=== PATIENT | female | born 1940 | race Caucasian/White ===

== ENCOUNTER 2017-08-21 13:03 | Inpatient (IN) | payer MEDICARE, OTHER ==
[~2017-08-21] VITALS: Ht 162.6 cm; Wt 68.9 kg
[2017-08-21] MEDS ORDERED: CLON0.1T PO (13:40)
[2017-08-21] MEDS ORDERED: GLIP10TA13 PO (13:40)
[2017-08-21] MEDS ORDERED: METF500T4 PO (13:40)
[2017-08-21] MEDS ORDERED: BENA40TA2 PO (13:40)
[2017-08-21] MEDS ORDERED: HYDR25TA6 PO (13:40)
[2017-08-21] MEDS ORDERED: ATEN25TA PO (13:40)
[2017-08-21] MEDS ORDERED: CLOP75TA PO (13:40)
[2017-08-21] MEDS ORDERED: VANCOMYCIN PER PHARMACY MC ONE (14:00)
[2017-08-21] MEDS ORDERED: VANCOMYCIN 2,000 MG in SODIUM CHLORIDE 0.9% 500 ML IV ONE (14:00)
[2017-08-21] MEDS ORDERED: PHARMACOKINETIC CONSULTATION MC ONE (14:00)
[2017-08-21] MEDS ORDERED: SODIUM CHLORIDE FLUSH 10ML SYR IVF ONE (14:00)
[2017-08-21] MEDS ORDERED: AMPICILLIN/SULBACTAM 3 GM in SODIUM CHLORIDE 0.9% 100 ML IVPB ONE (14:00)
[2017-08-21 14:16] LABS: HEMATOCRIT 32.7 % (34.6-47.8); HEMOGLOBIN 11.1 g/dL (11.7-16.4)
[2017-08-21 14:28] LABS: BLOOD UREA NITROGEN 39 mg/dL (7-18)
[2017-08-21] MEDS ORDERED: MORPHINE SULFATE 4 MG/ML, 1ML IVPush PRN (15:00)
[2017-08-21] MEDS ORDERED: DEXTROSE 50%, 50ML SYRINGE ONE (15:28)
[2017-08-21] MEDS ORDERED: DEXTROSE 50%, 50ML SYRINGE IVPush ONE (16:00)
[2017-08-21] MEDS ORDERED: D5%-0.45% NACL 1,000 ML IV SCH (16:00)
[2017-08-21 17:21] VITALS: BP 160/55
[2017-08-21] MEDS ORDERED: GLUCAGON 1 MG IM PRN (17:30)
[2017-08-21] MEDS ORDERED: DEXTROSE 4 GM TAB.CHEW PO PRN (17:30)
[2017-08-21] MEDS ORDERED: PHARMACY MAY ADJ FOR RENAL FX MC PRN (17:30)
[2017-08-21] MEDS ORDERED: VANCOMYCIN PER PHARMACY MC PRN (17:30)
[2017-08-21] MEDS ORDERED: ONDANSETRON 2MG/ML, 2ML IVPush PRN (17:30)
[2017-08-21] MEDS ORDERED: DEXTROSE 50%, 50ML SYRINGE IVPush PRN (17:30)
[2017-08-21] MEDS ORDERED: PROMETHAZINE 25 MG/ML, 1ML IM PRN (17:30)
[2017-08-21] MEDS ORDERED: PHARMACOKINETIC MONITORING MC PRN (18:00)
[2017-08-21] MEDS: D5%-0.45NACL+KCL 20MEQ 1,000 ML IV SCH (18:26)
[2017-08-21] MEDS ORDERED: VANCOMYCIN 2,000 MG in SODIUM CHLORIDE 0.9% 500 ML IV SCH (20:00)
[2017-08-21] MEDS: AMPICILLIN/SULBACTAM 3 GM in SODIUM CHLORIDE 0.9% 100 ML IV SCH (20:04)
[2017-08-21] MEDS: SODIUM CHLORIDE FLUSH 10ML SYR IVF SCH (20:05)
[2017-08-21] MEDS: ENOXAPARIN 40 MG/0.4 ML SQ SCH (20:05)
[2017-08-21] MEDS: BENAZEPRIL 20 MG TABLET PO SCH (20:06)
[2017-08-21] MEDS: ATENOLOL 25 MG TABLET PO SCH (20:06)
[2017-08-21 20:12] VITALS: BP 193/70
[2017-08-21] MEDS: INSULIN ASPART 100 UNITS/ML, PEN SQ-INSULIN SCH (22:41)
[2017-08-22] MEDS: AMPICILLIN/SULBACTAM 3 GM in SODIUM CHLORIDE 0.9% 100 ML IV SCH ×5 (02:00→23:20)
[2017-08-22 02:06] VITALS: BP 129/70
[2017-08-22 06:11] LABS: HEMATOCRIT 28.5 % (34.6-47.8); HEMOGLOBIN 9.5 g/dL (11.7-16.4); WHITE BLOOD COUNT 11.4 x10^3/uL (3.4-10)
[2017-08-22 06:32] VITALS: BP 181/72
[2017-08-22 06:36] LABS: ASPARTATE AMINO TRANSFERASE 9 U/L (15-37); BLOOD UREA NITROGEN 34 mg/dL (7-18)
[2017-08-22] MEDS: INSULIN ASPART 100 UNITS/ML, PEN SQ-INSULIN SCH ×4 (07:00→20:17)
[2017-08-22] MEDS ORDERED: CLOPIDOGREL 75 MG TABLET PO SCH (09:00)
[2017-08-22] MEDS: BENAZEPRIL 20 MG TABLET PO SCH ×2 (09:49→20:17)
[2017-08-22] MEDS: HYDROCHLOROTHIAZIDE 25 MG TABLET PO SCH (09:49)
[2017-08-22] MEDS: MORPHINE SULFATE 4 MG/ML, 1ML IVPush PRN ×3 (09:50→20:15)
[2017-08-22] MEDS: ATENOLOL 25 MG TABLET PO SCH ×2 (09:50→20:17)
[2017-08-22] MEDS: SODIUM CHLORIDE FLUSH 10ML SYR IVF SCH ×2 (09:56→20:14)
[2017-08-22 14:05] VITALS: BP 194/66
[2017-08-22 15:43] VITALS: BP 164/60
[2017-08-22] MEDS ORDERED: POTASSIUM CHLORIDE 40 MEQ in SODIUM CHLORIDE 0.9% 500 ML IV ONE (17:30)
[2017-08-22] MEDS: D5%-0.45NACL+KCL 20MEQ 1,000 ML IV SCH (18:20)
[2017-08-22 19:46] VITALS: BP 198/69
[2017-08-22] MEDS: ENOXAPARIN 40 MG/0.4 ML SQ SCH (20:14)
[2017-08-22 22:02] VITALS: BP 148/66
[2017-08-22] MEDS: VANCOMYCIN 1,200 MG in SODIUM CHLORIDE 0.9% 250 ML IV SCH (23:56)
[2017-08-23 01:56] VITALS: BP 163/65
[2017-08-23 05:54] LABS: HEMATOCRIT 29.7 % (34.6-47.8); HEMOGLOBIN 10.1 g/dL (11.7-16.4); WHITE BLOOD COUNT 7.5 x10^3/uL (3.4-10)
[2017-08-23 06:13] LABS: ASPARTATE AMINO TRANSFERASE 14 U/L (15-37); BLOOD UREA NITROGEN 20 mg/dL (7-18)
[2017-08-23] MEDS: AMPICILLIN/SULBACTAM 3 GM in SODIUM CHLORIDE 0.9% 100 ML IV SCH ×3 (06:35→22:09)
[2017-08-23] MEDS: INSULIN ASPART 100 UNITS/ML, PEN SQ-INSULIN SCH ×4 (07:00→20:49)
[2017-08-23 08:52] VITALS: BP 158/71
[2017-08-23] MEDS: SODIUM CHLORIDE FLUSH 10ML SYR IVF SCH ×2 (09:00→21:00)
[2017-08-23] MEDS: HYDROCHLOROTHIAZIDE 25 MG TABLET PO SCH (09:22)
[2017-08-23] MEDS: ATENOLOL 25 MG TABLET PO SCH ×2 (09:22→20:25)
[2017-08-23] MEDS: BENAZEPRIL 20 MG TABLET PO SCH ×2 (09:23→20:26)
[2017-08-23] MEDS ORDERED: SODIUM CHLORIDE 0.9% 1,000 ML IV SCH (12:00)
[2017-08-23 12:50] VITALS: BP 168/73
[2017-08-23] MEDS: MORPHINE SULFATE 4 MG/ML, 1ML IVPush PRN (14:24)
[2017-08-23] MEDS ORDERED: MAGNESIUM SULFATE PMX 4GM/100M 100 ML IV ONE (15:00)
[2017-08-23 20:13] VITALS: BP 176/81
[2017-08-23] MEDS: ACETYLCYSTEINE 600 MG CAPSULE PO SCH (20:25)
[2017-08-23] MEDS: DEXTROSE 5% IV SCH (20:25)
[2017-08-23] MEDS: SODIUM BICARB 8.4% IV SCH (20:25)
[2017-08-23] MEDS: POTASSIUM CHLORIDE IV SCH (20:25)
[2017-08-23] MEDS: ENOXAPARIN 40 MG/0.4 ML SQ SCH (20:26)
[2017-08-23] MEDS: VANCOMYCIN 1,200 MG in SODIUM CHLORIDE 0.9% 250 ML IV SCH ×2 (23:00→23:12)
[2017-08-23 23:58] VITALS: BP_SYST 186; BP_SYST 189; BP_DIAS 95; BP_DIAS 96
[2017-08-24] MEDS: LABETALOL 5MG/ML, 20ML IVPush PRN ×3 (00:09→12:42)
[2017-08-24 02:05] VITALS: BP 177/90
[2017-08-24] MEDS: AMPICILLIN/SULBACTAM 3 GM in SODIUM CHLORIDE 0.9% 100 ML IV SCH ×4 (04:25→21:45)
[2017-08-24 05:33] LABS: HEMATOCRIT 26.1 % (34.6-47.8); HEMOGLOBIN 8.7 g/dL (11.7-16.4); WHITE BLOOD COUNT 6.5 x10^3/uL (3.4-10)
[2017-08-24 05:42] LABS: BLOOD UREA NITROGEN 12 mg/dL (7-18)
[2017-08-24] MEDS: INSULIN ASPART 100 UNITS/ML, PEN SQ-INSULIN SCH ×4 (07:00→21:00)
[2017-08-24 07:46] VITALS: BP 183/74
[2017-08-24] MEDS: HYDROCHLOROTHIAZIDE 25 MG TABLET PO SCH (09:00)
[2017-08-24] MEDS: BENAZEPRIL 20 MG TABLET PO SCH ×2 (09:00→21:44)
[2017-08-24] MEDS: ACETYLCYSTEINE 600 MG CAPSULE PO SCH ×2 (10:33→21:45)
[2017-08-24] MEDS: SODIUM CHLORIDE FLUSH 10ML SYR IVF SCH ×2 (10:33→21:46)
[2017-08-24] MEDS: ATENOLOL 25 MG TABLET PO SCH ×2 (10:33→21:45)
[2017-08-24 12:38] VITALS: BP 199/80
[2017-08-24] MEDS: SODIUM BICARB 8.4% IV SCH (12:44)
[2017-08-24] MEDS: DEXTROSE 5% IV SCH (12:44)
[2017-08-24] MEDS: POTASSIUM CHLORIDE IV SCH (12:44)
[2017-08-24] MEDS ORDERED: MIDAZOLAM 1 MG/ML, 5ML ONE (15:27)
[2017-08-24] MEDS ORDERED: NALOXONE 1 MG/ML, 2ML ONE (15:27)
[2017-08-24] MEDS ORDERED: HEPARIN 1,000 UNITS/ML, 10ML ONE (15:27)
[2017-08-24] MEDS ORDERED: FENTANYL PF 100 MCG/2ML ONE (15:27)
[2017-08-24] MEDS ORDERED: NITROGLYCERIN 5 MG/ML, 10ML ONE (15:27)
[2017-08-24] MEDS ORDERED: FLUMAZENIL 0.1 MG/1 ML, 5ML ONE (15:27)
[2017-08-24] MEDS ORDERED: PROTAMINE SULFATE 10 MG/ML, 25ML ONE (15:28)
[2017-08-24] MEDS ORDERED: LIDOCAINE 2%, 20ML ONE (15:28)
[2017-08-24] MEDS ORDERED: hydrALAzine 20 MG/ML, 1ML ONE (16:30)
[2017-08-24] MEDS ORDERED: LABETALOL 5MG/ML, 20ML ONE (16:47)
[2017-08-24] MEDS: hydrALAzine 20 MG/ML, 1ML IV PRN (17:26)
[2017-08-24] MEDS: MORPHINE SULFATE 4 MG/ML, 1ML IVPush PRN (17:52)
[2017-08-24] MEDS: SODIUM CHLORIDE 0.9% 1,000 ML IV SCH (17:54)
[2017-08-24] MEDS: HYDROcodone/APAP 5/325 TABLET PO PRN (20:06)
[2017-08-24 20:39] VITALS: BP 193/81
[2017-08-24] MEDS: ENOXAPARIN 40 MG/0.4 ML SQ SCH (21:45)
[2017-08-25] VITALS (9 sets, daily range): BP systolic 117–207; BP diastolic 69–85
[2017-08-25] MEDS: hydrALAzine 20 MG/ML, 1ML IV PRN ×3 (02:25→15:05)
[2017-08-25] MEDS: MORPHINE SULFATE 4 MG/ML, 1ML IVPush PRN ×3 (03:32→16:56)
[2017-08-25] MEDS: AMPICILLIN/SULBACTAM 3 GM in SODIUM CHLORIDE 0.9% 100 ML IV SCH ×4 (04:50→22:00)
[2017-08-25] MEDS: SODIUM CHLORIDE 0.9% 1,000 ML IV SCH ×2 (04:51→16:17)
[2017-08-25 06:10] LABS: HEMATOCRIT 29.5 % (34.6-47.8); HEMOGLOBIN 9.9 g/dL (11.7-16.4); WHITE BLOOD COUNT 8.8 x10^3/uL (3.4-10)
[2017-08-25 06:29] LABS: BLOOD UREA NITROGEN 8 mg/dL (7-18)
[2017-08-25] MEDS: INSULIN ASPART 100 UNITS/ML, PEN SQ-INSULIN SCH ×4 (07:00→21:00)
[2017-08-25] MEDS: SODIUM CHLORIDE FLUSH 10ML SYR IVF SCH ×2 (09:00→21:00)
[2017-08-25] MEDS: HYDROCHLOROTHIAZIDE 25 MG TABLET PO SCH (09:52)
[2017-08-25] MEDS: BENAZEPRIL 20 MG TABLET PO SCH ×2 (09:52→21:00)
[2017-08-25] MEDS: ACETYLCYSTEINE 600 MG CAPSULE PO SCH (09:53)
[2017-08-25] MEDS: ATENOLOL 25 MG TABLET PO SCH ×2 (09:53→21:00)
[2017-08-25] MEDS: LABETALOL 5MG/ML, 20ML IVPush PRN (13:39)
[2017-08-25] MEDS ORDERED: BUPIVACAINE/PF 0.5% ONE (17:37)
[2017-08-25] MEDS ORDERED: THROMBIN 20,000 UNIT VIAL TP ONE (17:37)
[2017-08-25] MEDS ORDERED: BACITRACIN 50,000 UNIT ONE (17:37)
[2017-08-25] MEDS ORDERED: HEPARIN 1,000 UNITS/ML, 10ML ONE (17:37)
[2017-08-25] MEDS ORDERED: PROTAMINE SULFATE 10 MG/ML, 5ML ONE (17:39)
[2017-08-25] MEDS ORDERED: PHENYLEPHRINE 10 MG/ML ONE (18:12)
[2017-08-25] MEDS ORDERED: SUCCINYLCHOLINE 20 MG/ML, 10ML ONE (18:12)
[2017-08-25] MEDS ORDERED: LIDOCAINE 2%, 10ML ONE (18:12)
[2017-08-25] MEDS ORDERED: ROCURONIUM 10 MG/ML ONE (18:12)
[2017-08-25] MEDS ORDERED: GLYCOPYRROLATE 0.2MG/1ML, 5ML ONE (18:12)
[2017-08-25] MEDS ORDERED: FENTANYL PF 100 MCG/2ML ONE ×3 (18:12→21:36)
[2017-08-25] MEDS ORDERED: PROPOFOL 10 MG/ML, 20ML ONE (18:12)
[2017-08-25] MEDS ORDERED: CEFAZOLIN 1,000 MG ONE (18:12)
[2017-08-25] MEDS ORDERED: NEOSTIGMINE 1 MG/ML, 10ML ONE (18:12)
[2017-08-25] MEDS ORDERED: PAPAVERINE 30 MG/ML, 2ML ONE (19:03)
[2017-08-25] MEDS ORDERED: PROMETHAZINE 25 MG/ML, 1ML IV PRN (19:30)
[2017-08-25] MEDS ORDERED: LABETALOL 5MG/ML, 20ML IV PRN (19:30)
[2017-08-25] MEDS ORDERED: OXYcodone 5 MG/5 ML ORAL.SOL UDC PO PRN (19:30)
[2017-08-25] MEDS ORDERED: ACETAMINOPHEN 325 MG TABLET PO PRN (19:30)
[2017-08-25] MEDS ORDERED: ONDANSETRON 2MG/ML, 2ML IVPush PRN (19:30)
[2017-08-25] MEDS ORDERED: hydrALAzine 20 MG/ML, 1ML IV PRN (19:30)
[2017-08-25] MEDS ORDERED: HYDROmorphone 1 MG/ML, 1ML IV PRN (19:30)
[2017-08-25] MEDS: ENOXAPARIN 40 MG/0.4 ML SQ SCH (20:00)
[2017-08-25] MEDS: FENTANYL PF 100 MCG/2ML IV PRN ×2 (21:35→22:00)
[2017-08-25] MEDS ORDERED: OXYcodone 5 MG/5 ML ORAL.SOL UDC ONE (21:36)
[2017-08-26] MEDS: MORPHINE SULFATE 4 MG/ML, 1ML IVPush PRN ×4 (00:05→14:11)
[2017-08-26] MEDS: AMPICILLIN/SULBACTAM 3 GM in SODIUM CHLORIDE 0.9% 100 ML IV SCH ×5 (00:31→18:39)
[2017-08-26 02:00] VITALS: BP 138/68
[2017-08-26] MEDS ORDERED: ASPIRIN 325 MG TABLET EC PO SCH (06:00)
[2017-08-26 06:49] VITALS: BP 164/63
[2017-08-26] MEDS: INSULIN ASPART 100 UNITS/ML, PEN SQ-INSULIN SCH ×4 (07:00→21:14)
[2017-08-26 07:27] LABS: BLOOD UREA NITROGEN 9 mg/dL (7-18)
[2017-08-26 08:02] LABS: HEMATOCRIT 27.2 % (34.6-47.8); HEMOGLOBIN 9.1 g/dL (11.7-16.4); WHITE BLOOD COUNT 9.6 x10^3/uL (3.4-10)
[2017-08-26] MEDS: SODIUM CHLORIDE FLUSH 10ML SYR IVF SCH ×2 (09:32→21:00)
[2017-08-26] MEDS: SODIUM CHLORIDE 0.9% 1,000 ML IV SCH ×3 (09:32→18:41)
[2017-08-26] MEDS: BENAZEPRIL 20 MG TABLET PO SCH ×2 (09:32→21:07)
[2017-08-26] MEDS: HYDROCHLOROTHIAZIDE 25 MG TABLET PO SCH (09:32)
[2017-08-26] MEDS: ATENOLOL 25 MG TABLET PO SCH ×2 (09:32→21:07)
[2017-08-26 12:57] VITALS: BP 183/74
[2017-08-26 20:39] VITALS: BP 133/71
[2017-08-26] MEDS: ENOXAPARIN 40 MG/0.4 ML SQ SCH (21:07)
[2017-08-27] MEDS: AMPICILLIN/SULBACTAM 3 GM in SODIUM CHLORIDE 0.9% 100 ML IV SCH ×4 (00:24→18:47)
[2017-08-27 04:09] VITALS: BP 180/71
[2017-08-27] MEDS: hydrALAzine 20 MG/ML, 1ML IV PRN (04:35)
[2017-08-27] MEDS: MORPHINE SULFATE 4 MG/ML, 1ML IVPush PRN (04:59)
[2017-08-27 05:53] LABS: HEMATOCRIT 24.4 % (34.6-47.8); HEMOGLOBIN 8.3 g/dL (11.7-16.4); WHITE BLOOD COUNT 8.3 x10^3/uL (3.4-10)
[2017-08-27] MEDS: INSULIN ASPART 100 UNITS/ML, PEN SQ-INSULIN SCH ×4 (06:12→21:00)
[2017-08-27] MEDS: ASPIRIN 81 MG TABLET EC PO SCH (06:13)
[2017-08-27 06:14] LABS: BLOOD UREA NITROGEN 16 mg/dL (7-18)
[2017-08-27] MEDS: CLOPIDOGREL 75 MG TABLET PO SCH (09:20)
[2017-08-27] MEDS: HYDROCHLOROTHIAZIDE 25 MG TABLET PO SCH (09:21)
[2017-08-27] MEDS: ATENOLOL 25 MG TABLET PO SCH ×2 (09:21→22:31)
[2017-08-27] MEDS: SODIUM CHLORIDE FLUSH 10ML SYR IVF SCH ×2 (09:22→21:00)
[2017-08-27] MEDS: BENAZEPRIL 20 MG TABLET PO SCH ×2 (09:22→22:32)
[2017-08-27 09:24] VITALS: BP 158/79
[2017-08-27] MEDS ORDERED: VANCOMYCIN PMX 1GM/200ML 200 ML IVPB ONE (11:00)
[2017-08-27] MEDS: SODIUM CHLORIDE 0.9% 1,000 ML IV SCH (11:10)
[2017-08-27 13:33] VITALS: BP 158/74
[2017-08-27] MEDS ORDERED: SODIUM CHLORIDE 0.9%, 500ML IVBOLUS ONE ×2 (14:00→16:00)
[2017-08-27 22:12] VITALS: BP 197/90
[2017-08-27] MEDS: HYDROcodone/APAP 5/325 TABLET PO PRN (22:31)
[2017-08-27] MEDS: ENOXAPARIN 40 MG/0.4 ML SQ SCH (22:32)
[2017-08-28 01:04] VITALS: BP 151/59
[2017-08-28] MEDS: AMPICILLIN/SULBACTAM 3 GM in SODIUM CHLORIDE 0.9% 100 ML IV SCH ×4 (01:32→18:19)
[2017-08-28] MEDS: SODIUM CHLORIDE 0.9% 1,000 ML IV SCH ×3 (01:32→22:40)
[2017-08-28 05:32] LABS: HEMATOCRIT 23.9 % (34.6-47.8); HEMOGLOBIN 7.9 g/dL (11.7-16.4); WHITE BLOOD COUNT 7.3 x10^3/uL (3.4-10)
[2017-08-28 05:49] LABS: ASPARTATE AMINO TRANSFERASE 13 U/L (15-37); BLOOD UREA NITROGEN 18 mg/dL (7-18)
[2017-08-28] MEDS ORDERED: POTASSIUM CHLORIDE 20 MEQ TAB.ER.PRT PO ONE (06:49)
[2017-08-28] MEDS: ASPIRIN 81 MG TABLET EC PO SCH (06:55)
[2017-08-28] MEDS: HYDROcodone/APAP 5/325 TABLET PO PRN ×3 (06:55→23:02)
[2017-08-28] MEDS: INSULIN ASPART 100 UNITS/ML, PEN SQ-INSULIN SCH ×4 (07:00→20:43)
[2017-08-28] MEDS ORDERED: MAGNESIUM SULFATE PMX 2GM/50ML 50 ML IV ONE (07:00)
[2017-08-28 07:18] VITALS: BP 170/71
[2017-08-28 07:35] LABS: FERRITIN 83.2 ng/mL (8-252)
[2017-08-28] MEDS: HYDROCHLOROTHIAZIDE 25 MG TABLET PO SCH (08:07)
[2017-08-28] MEDS: BENAZEPRIL 20 MG TABLET PO SCH ×2 (08:08→20:43)
[2017-08-28] MEDS: ATENOLOL 25 MG TABLET PO SCH ×2 (08:08→20:44)
[2017-08-28] MEDS: CLOPIDOGREL 75 MG TABLET PO SCH (08:08)
[2017-08-28] MEDS: AMLODIPINE 5 MG TABLET PO SCH (09:00)
[2017-08-28] MEDS: MORPHINE SULFATE 4 MG/ML, 1ML IVPush PRN (10:44)
[2017-08-28] MEDS ORDERED: BISACODYL 10 MG SUPP PR PRN (12:00)
[2017-08-28] MEDS ORDERED: SENNOSIDES 8.6 MG TABLET PO PRN (12:00)
[2017-08-28] MEDS ORDERED: POLYETHYLENE GLYCOL 17 GM PACKET PO PRN (12:00)
[2017-08-28] MEDS ORDERED: DOCUSATE 100 MG CAPSULE PO PRN (12:00)
[2017-08-28] MEDS: SODIUM CHLORIDE FLUSH 10ML SYR IVF SCH ×2 (12:11→20:39)
[2017-08-28 12:14] VITALS: BP 164/73
[2017-08-28] MEDS: FERROUS GLUCONATE 324 MG TABLET PO SCH (16:53)
[2017-08-28 19:05] VITALS: BP 174/74
[2017-08-28] MEDS: hydrALAzine 20 MG/ML, 1ML IV PRN (19:35)
[2017-08-28] MEDS: ENOXAPARIN 40 MG/0.4 ML SQ SCH (20:39)
[2017-08-28 20:43] VITALS: BP 140/52
[2017-08-29] MEDS: AMPICILLIN/SULBACTAM 3 GM in SODIUM CHLORIDE 0.9% 100 ML IV SCH ×3 (00:12→12:43)
[2017-08-29 01:14] VITALS: BP 146/68
[2017-08-29] MEDS: HYDROcodone/APAP 5/325 TABLET PO PRN ×2 (03:36→21:34)
[2017-08-29] MEDS: MORPHINE SULFATE 4 MG/ML, 1ML IVPush PRN ×3 (05:32→18:28)
[2017-08-29 05:38] LABS: BLOOD UREA NITROGEN 21 mg/dL (7-18)
[2017-08-29 05:46] LABS: HEMOGLOBIN 7.6 g/dL (11.7-16.4); WHITE BLOOD COUNT 6.4 x10^3/uL (3.4-10)
[2017-08-29 05:50] LABS: HEMATOCRIT 22.8 % (34.6-47.8)
[2017-08-29] MEDS: ASPIRIN 81 MG TABLET EC PO SCH (06:42)
[2017-08-29] MEDS: INSULIN ASPART 100 UNITS/ML, PEN SQ-INSULIN SCH ×4 (06:42→21:00)
[2017-08-29] MEDS ORDERED: POTASSIUM CHLORIDE 20 MEQ PACKET PO ONE (06:43)
[2017-08-29 08:30] VITALS: BP 149/63
[2017-08-29] MEDS: SODIUM CHLORIDE FLUSH 10ML SYR IVF SCH ×2 (09:36→21:35)
[2017-08-29] MEDS: BENAZEPRIL 20 MG TABLET PO SCH ×2 (09:38→21:34)
[2017-08-29] MEDS: CLOPIDOGREL 75 MG TABLET PO SCH (09:38)
[2017-08-29] MEDS: HYDROCHLOROTHIAZIDE 25 MG TABLET PO SCH (09:38)
[2017-08-29] MEDS: AMLODIPINE 5 MG TABLET PO SCH (09:38)
[2017-08-29] MEDS: ATENOLOL 25 MG TABLET PO SCH ×2 (09:39→21:34)
[2017-08-29] MEDS: SODIUM CHLORIDE 0.9% 1,000 ML IV SCH ×3 (10:02→21:35)
[2017-08-29 11:27] LABS: HEMATOCRIT 25.1 % (34.6-47.8); HEMOGLOBIN 8.2 g/dL (11.7-16.4)
[2017-08-29] MEDS ORDERED: PHARMACY MAY ADJ FOR RENAL FX MC PRN (14:30)
[2017-08-29 15:18] VITALS: BP 152/89
[2017-08-29] MEDS ORDERED: PIPERACILLIN/TAZO/PMX 3.375GM 50 ML IV SCH (16:00)
[2017-08-29] MEDS: PIPERACILLIN/TAZO/PMX 3.375GM 50 ML IV SCH ×2 (16:23→21:34)
[2017-08-29] MEDS: FERROUS GLUCONATE 324 MG TABLET PO SCH (16:23)
[2017-08-29 19:31] VITALS: BP 183/75
[2017-08-29] MEDS: hydrALAzine 20 MG/ML, 1ML IV PRN (19:42)
[2017-08-29 21:29] VITALS: BP 195/72
[2017-08-29] MEDS: ENOXAPARIN 40 MG/0.4 ML SQ SCH (21:34)
[2017-08-30 01:03] VITALS: BP 192/67
[2017-08-30] MEDS: hydrALAzine 20 MG/ML, 1ML IV PRN (01:11)
[2017-08-30 01:45] VITALS: BP 151/70
[2017-08-30] MEDS: HYDROcodone/APAP 5/325 TABLET PO PRN ×3 (04:42→20:35)
[2017-08-30] MEDS: INSULIN ASPART 100 UNITS/ML, PEN SQ-INSULIN SCH ×4 (06:20→19:41)
[2017-08-30] MEDS: ASPIRIN 81 MG TABLET EC PO SCH (06:21)
[2017-08-30 07:09] LABS: HEMATOCRIT 25.5 % (34.6-47.8); HEMOGLOBIN 8.5 g/dL (11.7-16.4); WHITE BLOOD COUNT 8.5 x10^3/uL (3.4-10)
[2017-08-30] MEDS: PIPERACILLIN/TAZO/PMX 3.375GM 50 ML IV SCH ×3 (07:25→19:39)
[2017-08-30 08:01] LABS: BLOOD UREA NITROGEN 17 mg/dL (7-18)
[2017-08-30 08:17] VITALS: BP 197/66
[2017-08-30] MEDS ORDERED: VANCOMYCIN 1,200 MG in SODIUM CHLORIDE 0.9% 250 ML IV ONE (08:30)
[2017-08-30] MEDS: SODIUM CHLORIDE FLUSH 10ML SYR IVF SCH ×2 (09:00→20:35)
[2017-08-30] MEDS: BENAZEPRIL 20 MG TABLET PO SCH ×2 (09:04→20:35)
[2017-08-30] MEDS: HYDROCHLOROTHIAZIDE 25 MG TABLET PO SCH (09:05)
[2017-08-30] MEDS: ATENOLOL 25 MG TABLET PO SCH ×2 (09:08→20:35)
[2017-08-30] MEDS: CLOPIDOGREL 75 MG TABLET PO SCH (09:09)
[2017-08-30] MEDS: AMLODIPINE 5 MG TABLET PO SCH (09:14)
[2017-08-30 12:40] VITALS: BP 169/65
[2017-08-30] MEDS: SODIUM CHLORIDE 0.9% 1,000 ML IV SCH ×2 (13:27→23:37)
[2017-08-30] MEDS: FERROUS GLUCONATE 324 MG TABLET PO SCH (16:48)
[2017-08-30 20:34] VITALS: BP 185/74
[2017-08-30] MEDS: ENOXAPARIN 40 MG/0.4 ML SQ SCH (20:35)
[2017-08-31] MEDS: PIPERACILLIN/TAZO/PMX 3.375GM 50 ML IV SCH ×2 (01:59→07:08)
[2017-08-31 02:03] VITALS: BP 186/78
[2017-08-31] MEDS: HYDROcodone/APAP 5/325 TABLET PO PRN ×3 (02:09→16:14)
[2017-08-31] MEDS: hydrALAzine 20 MG/ML, 1ML IV PRN (02:09)
[2017-08-31] MEDS: INSULIN ASPART 100 UNITS/ML, PEN SQ-INSULIN SCH ×4 (07:00→21:10)
[2017-08-31] MEDS: ASPIRIN 81 MG TABLET EC PO SCH (07:08)
[2017-08-31 07:31] VITALS: BP 168/71
[2017-08-31] MEDS: HYDROCHLOROTHIAZIDE 25 MG TABLET PO SCH (07:55)
[2017-08-31] MEDS: BENAZEPRIL 20 MG TABLET PO SCH ×2 (07:56→21:00)
[2017-08-31] MEDS: CLOPIDOGREL 75 MG TABLET PO SCH (07:57)
[2017-08-31] MEDS: AMLODIPINE 5 MG TABLET PO SCH (07:57)
[2017-08-31] MEDS: ATENOLOL 25 MG TABLET PO SCH ×2 (07:58→20:59)
[2017-08-31] MEDS: SODIUM CHLORIDE FLUSH 10ML SYR IVF SCH ×2 (07:59→21:10)
[2017-08-31] MEDS: LABETALOL 5MG/ML, 20ML IVPush PRN (11:49)
[2017-08-31 11:50] VITALS: BP 193/76
[2017-08-31] MEDS ORDERED: HYDROCHLOROTHIAZIDE 25 MG TABLET PO ONE (12:30)
[2017-08-31 12:50] VITALS: BP_SYST 193; BP_SYST 194; BP_DIAS 62; BP_DIAS 76
[2017-08-31] MEDS ORDERED: MORPHINE SULFATE 4 MG/ML, 1ML ONE (13:53)
[2017-08-31] MEDS ORDERED: MORPHINE SULFATE 4 MG/ML, 1ML IVPush PRN (14:00)
[2017-08-31 14:06] VITALS: BP 171/72
[2017-08-31] MEDS ORDERED: LABETALOL 5MG/ML, 20ML IVPush PRN (14:30)
[2017-08-31] MEDS ORDERED: HYDROCHLOROTHIAZIDE 25 MG TABLET PO SCH (16:00)
[2017-08-31] MEDS: FERROUS GLUCONATE 324 MG TABLET PO SCH (16:10)
[2017-08-31 19:22] VITALS: BP 137/68
[2017-08-31] MEDS: ENOXAPARIN 40 MG/0.4 ML SQ SCH (21:00)
[2017-09-01 01:30] VITALS: BP 157/71
[2017-09-01] MEDS: ASPIRIN 81 MG TABLET EC PO SCH (06:08)
[2017-09-01] MEDS: INSULIN ASPART 100 UNITS/ML, PEN SQ-INSULIN SCH ×4 (07:29→20:42)
[2017-09-01 07:45] VITALS: BP 198/81
[2017-09-01] MEDS ORDERED: HYDROCHLOROTHIAZIDE 25 MG TABLET PO SCH ×2 (09:00)
[2017-09-01] MEDS: HYDROcodone/APAP 5/325 TABLET PO PRN (09:03)
[2017-09-01] MEDS: CLOPIDOGREL 75 MG TABLET PO SCH (09:04)
[2017-09-01] MEDS: BENAZEPRIL 20 MG TABLET PO SCH ×2 (09:04→20:42)
[2017-09-01] MEDS: SODIUM CHLORIDE FLUSH 10ML SYR IVF SCH ×2 (09:05→20:43)
[2017-09-01] MEDS: AMLODIPINE 5 MG TABLET PO SCH (09:08)
[2017-09-01] MEDS: ATENOLOL 25 MG TABLET PO SCH ×2 (09:09→20:42)
[2017-09-01 09:38] LABS: HEMATOCRIT 28.8 % (34.6-47.8); HEMOGLOBIN 9.6 g/dL (11.7-16.4); WHITE BLOOD COUNT 10.7 x10^3/uL (3.4-10)
[2017-09-01 09:44] LABS: BLOOD UREA NITROGEN 11 mg/dL (7-18)
[2017-09-01 10:02] VITALS: BP 156/67
[2017-09-01] MEDS ORDERED: POTASSIUM CHLORIDE 20 MEQ TAB.ER.PRT PO ONE (10:30)
[2017-09-01] MEDS ORDERED: FUROSEMIDE 20 MG/2 ML IV SCH (11:30)
[2017-09-01] MEDS ORDERED: IRON SUCROSE COMPLEX 100MG/5ML IV SCH (11:30)
[2017-09-01] MEDS ORDERED: FUROSEMIDE 40 MG/4 ML IV ONE (12:00)
[2017-09-01] MEDS ORDERED: FUROSEMIDE 20 MG/2 ML ONE (12:02)
[2017-09-01 12:41] VITALS: BP 159/66
[2017-09-01] MEDS: POTASSIUM CHLORIDE 20 MEQ PACKET PO SCH ×2 (16:30→16:35)
[2017-09-01 20:00] VITALS: BP 161/70
[2017-09-01] MEDS: ENOXAPARIN 40 MG/0.4 ML SQ SCH (20:42)
[2017-09-01] MEDS: FUROSEMIDE 40 MG/4 ML IV SCH (21:57)
[2017-09-02] VITALS (11 sets, daily range): BP systolic 125–208; BP diastolic 55–73
[2017-09-02 05:17] LABS: HEMATOCRIT 25.5 % (34.6-47.8); HEMOGLOBIN 8.5 g/dL (11.7-16.4); WHITE BLOOD COUNT 9.1 x10^3/uL (3.4-10)
[2017-09-02 05:31] LABS: ASPARTATE AMINO TRANSFERASE 21 U/L (15-37); BLOOD UREA NITROGEN 12 mg/dL (7-18)
[2017-09-02] MEDS: ASPIRIN 81 MG TABLET EC PO SCH (06:37)
[2017-09-02] MEDS ORDERED: MAGNESIUM SULFATE PMX 2GM/50ML 50 ML IV ONE (07:00)
[2017-09-02] MEDS: INSULIN ASPART 100 UNITS/ML, PEN SQ-INSULIN SCH ×4 (08:15→19:59)
[2017-09-02] MEDS: HYDROcodone/APAP 5/325 TABLET PO PRN ×2 (09:15→14:20)
[2017-09-02] MEDS: BENAZEPRIL 20 MG TABLET PO SCH ×2 (09:17→20:00)
[2017-09-02] MEDS: ATENOLOL 25 MG TABLET PO SCH ×2 (09:19→20:00)
[2017-09-02] MEDS: AMLODIPINE 5 MG TABLET PO SCH (09:20)
[2017-09-02] MEDS: CLOPIDOGREL 75 MG TABLET PO SCH (09:20)
[2017-09-02] MEDS: POTASSIUM CHLORIDE 20 MEQ PACKET PO SCH ×3 (09:21→20:02)
[2017-09-02] MEDS: SODIUM CHLORIDE FLUSH 10ML SYR IVF SCH ×2 (09:21→20:03)
[2017-09-02] MEDS: FUROSEMIDE 40 MG/4 ML IV SCH (10:07)
[2017-09-02] MEDS: FUROSEMIDE 80 MG TABLET PO SCH ×2 (10:30→20:01)
[2017-09-02] MEDS: METOLAZONE 5 MG TABLET PO SCH (10:30)
[2017-09-02] MEDS: FERROUS SULFATE 325 MG TABLET PO SCH ×2 (18:12→20:01)
[2017-09-02] MEDS: ENOXAPARIN 40 MG/0.4 ML SQ SCH (20:02)
[2017-09-03 00:08] VITALS: BP 150/76
[2017-09-03 05:40] LABS: HEMATOCRIT 25.3 % (34.6-47.8); HEMOGLOBIN 8.6 g/dL (11.7-16.4); WHITE BLOOD COUNT 9.3 x10^3/uL (3.4-10)
[2017-09-03 05:48] LABS: BLOOD UREA NITROGEN 15 mg/dL (7-18)
[2017-09-03] MEDS: ASPIRIN 81 MG TABLET EC PO SCH (06:06)
[2017-09-03] MEDS: HYDROcodone/APAP 5/325 TABLET PO PRN ×2 (06:07→18:08)
[2017-09-03 07:15] VITALS: BP 150/74
[2017-09-03] MEDS: METOLAZONE 5 MG TABLET PO SCH (07:30)
[2017-09-03] MEDS: INSULIN ASPART 100 UNITS/ML, PEN SQ-INSULIN SCH ×4 (07:56→21:00)
[2017-09-03] MEDS ORDERED: AMLO5TAB2 PO (08:40)
[2017-09-03] MEDS ORDERED: FERR-36 PO (08:40)
[2017-09-03] MEDS ORDERED: HYDR-3342 PO (08:40)
[2017-09-03] MEDS ORDERED: POTA20PA25 PO (08:40)
[2017-09-03] MEDS ORDERED: METO5TAB5 PO (08:40)
[2017-09-03] MEDS ORDERED: FURO80TA3 PO (08:40)
[2017-09-03] MEDS ORDERED: ASPI-621 PO (08:40)
[2017-09-03] MEDS: SODIUM CHLORIDE FLUSH 10ML SYR IVF SCH ×2 (09:00→21:00)
[2017-09-03] MEDS: CLOPIDOGREL 75 MG TABLET PO SCH (09:07)
[2017-09-03] MEDS: BENAZEPRIL 20 MG TABLET PO SCH ×2 (09:08→21:17)
[2017-09-03] MEDS: ATENOLOL 25 MG TABLET PO SCH ×2 (09:09→21:17)
[2017-09-03] MEDS: AMLODIPINE 5 MG TABLET PO SCH (09:09)
[2017-09-03] MEDS: FUROSEMIDE 80 MG TABLET PO SCH ×2 (09:10→21:16)
[2017-09-03] MEDS ORDERED: POTA20TA14 PO (09:32)
[2017-09-03 14:07] VITALS: BP 101/47
[2017-09-03] MEDS: FERROUS SULFATE 325 MG TABLET PO SCH (17:29)
[2017-09-03] MEDS: POTASSIUM CHLORIDE 20 MEQ PACKET PO SCH (17:29)
[2017-09-03 18:46] VITALS: BP 136/54
[2017-09-03] MEDS: ENOXAPARIN 40 MG/0.4 ML SQ SCH (21:16)
[2017-09-04 03:40] VITALS: BP 149/72
[2017-09-04] MEDS: ASPIRIN 81 MG TABLET EC PO SCH (06:00)
[2017-09-04 07:55] LABS: BLOOD UREA NITROGEN 20 mg/dL (7-18)
[2017-09-04 08:35] VITALS: BP 131/66
[2017-09-04] MEDS: SODIUM CHLORIDE FLUSH 10ML SYR IVF SCH (09:03)
[2017-09-04] MEDS: INSULIN ASPART 100 UNITS/ML, PEN SQ-INSULIN SCH ×2 (09:08→11:04)
[2017-09-04] MEDS: ATENOLOL 25 MG TABLET PO SCH (09:09)
[2017-09-04] MEDS: BENAZEPRIL 20 MG TABLET PO SCH (09:09)
[2017-09-04] MEDS: AMLODIPINE 5 MG TABLET PO SCH (09:10)
[2017-09-04] MEDS: FERROUS SULFATE 325 MG TABLET PO SCH (09:10)
[2017-09-04] MEDS: METOLAZONE 5 MG TABLET PO SCH (09:10)
[2017-09-04] MEDS: POTASSIUM CHLORIDE 20 MEQ PACKET PO SCH (09:10)
[2017-09-04] MEDS: CLOPIDOGREL 75 MG TABLET PO SCH (09:11)
[2017-09-04] MEDS: FUROSEMIDE 80 MG TABLET PO SCH (09:13)
[2017-09-04] MEDS ORDERED: FURO80TA3 PO (10:40)
[2017-09-04] MEDS ORDERED: FUROSEMIDE 80 MG TABLET PO SCH (21:00)
[2017-09-07 14:07] LABS: ALDOSTERONE 7.9 ng/dL (0.0-30.0)
== END 2017-09-04 10:50 | disposition left against medical advice (07) | DRG 252 ==
LOC: ED 14:41 → EDIP 14:42 → ED 15:30 → 4NOR 17:15
PROVIDERS: ADMIT Internal Medicine; ATTEND Internal Medicine
PROC: B4101ZZ Fluoroscopy of Abdominal Aorta using Low Osmolar Contrast (ICD-10-PCS; 2017-08-24)
PROC: B41G1ZZ Fluoroscopy of Left Lower Extremity Arteries using Low Osmolar Contrast (ICD-10-PCS; 2017-08-24)
PROC: 041 Lower Arteries, Bypass (ICD-10-PCS; 2017-08-25)
PROC: 06BQ0ZZ Excision of Left Saphenous Vein, Open Approach (ICD-10-PCS; 2017-08-25)
PROC: 0Y6S0Z0 Detachment at Left 2nd Toe, Complete, Open Approach (ICD-10-PCS; principal; 2017-08-25 17:30)
DX: E11.52 Type 2 diabetes mellitus with diabetic peripheral angiopathy with gangrene (principal); G93.41 Metabolic encephalopathy; N17.9 Acute kidney failure, unspecified; E46 Unspecified protein-calorie malnutrition; L03.116 Cellulitis of left lower limb; E83.42 Hypomagnesemia; E11.22 Type 2 diabetes mellitus with diabetic chronic kidney disease; Z86.73 Personal history of transient ischemic attack (TIA), and cerebral infarction without residual deficits; Z91.19 Patient's noncompliance with other medical treatment and regimen; E11.621 Type 2 diabetes mellitus with foot ulcer; D63.8 Anemia in other chronic diseases classified elsewhere; E11.65 Type 2 diabetes mellitus with hyperglycemia; Z68.26 Body mass index [BMI] 26.0-26.9, adult; E83.51 Hypocalcemia; Z53.21 Procedure and treatment not carried out due to patient leaving prior to being seen by health care provider; E87.6 Hypokalemia; F01.50 Vascular dementia, unspecified severity, without behavioral disturbance, psychotic disturbance, mood disturbance, and anxiety; H26.9 Unspecified cataract; I13.10 Hypertensive heart and chronic kidney disease without heart failure, with stage 1 through stage 4 chronic kidney disease, or unspecified chronic kidney disease; E11.51 Type 2 diabetes mellitus with diabetic peripheral angiopathy without gangrene; K59.00 Constipation, unspecified; L97.519 Non-pressure chronic ulcer of other part of right foot with unspecified severity; N18.3 Chronic kidney disease, stage 3 (moderate)
CPT/HCPCS: 36246; 36415; 75630; 75710; 76770; 76937; 80048; 80053; 80069; 80202; 82040; 82088; 82306; 82728; 82962; 83540; 83550; 83735; 83970; 84100; 84244; 84466; 84550; 85014; 85018; 85025; 85045; 86850; 86900; 87070; 87077; 87186; 87205; 88305; 88311; 93005; 93880; 93922; 93970; 96365; 96367; 96375; 99156; 99157; C1729; J0295; J0690; J1644; J1650; J1756; J1815; J1940; J2250; J2543; J2704; J2710; J2720; J3010; J3370; J3480; J3490; J7070; C1751; C1760; C1769; C1894; G0269; J0330; J0360; J2310; J2370; J2440; J3475; J7030; J7040; J7050

== ENCOUNTER 2017-12-03 21:30 | Inpatient (IN) | payer MEDICARE, OTHER ==
[~2017-12-03] VITALS: Ht 162.6 cm; Wt 67.8 kg
[~2017-12-03 21:30] MED LIST: AMLO5TAB2 PO; ASPI-621 PO; ATEN25TA PO; BENA40TA2 PO; CLON0.1T PO; CLOP75TA PO; FERR-36 PO; FURO80TA3 PO; GLIP10TA13 PO; HYDR-3342 PO; HYDR25TA6 PO; METF500T4 PO; METO5TAB5 PO; POTA20PA25 PO; POTA20TA14 PO
[2017-12-03] MEDS ORDERED: REGULAR INSULIN 62.5 UNITS in SODIUM CHLORIDE 0.9% 249.375 ML IV PRN (22:22)
[2017-12-03 23:02] LABS: PH, VENOUS 7.428 pH (7.320-7.420)
[2017-12-03 23:06] LABS: MEAN CORPUSCULAR HEMOGLOBIN 29.9 pg (27.0-34.8); MEAN CORPUSCULAR HGB CONC 33.3 g/dL (32.4-35.8); MEAN CORPUSCULAR VOLUME 89.8 fL (80-100); MEAN PLATELET VOLUME 9.1 fL (7.4-10.4); PLATELET COUNT 294 x10^3/uL (130-400); RED BLOOD COUNT 3.64 x10^6/uL (3.82-5.3); RED CELL DISTRIBUTION WIDTH 12.4 % (9.6-15.2)
[2017-12-03 23:14] LABS: ALANINE AMINOTRANSFERASE 15 U/L (12-78); ALBUMIN 2.3 g/dL (3.4-5.0); ANION GAP 15 mmol/L (5-15); CALCIUM 8.3 mg/dL (8.5-10.1); CHLORIDE 89 mmol/L (98-107); CREATININE 2.47 mg/dL (0.55-1.02)
[2017-12-03 23:17] LABS: ALKALINE PHOSPHATASE 130 U/L (45-117); BILIRUBIN,TOTAL 0.3 mg/dL (0.2-1.0); TOTAL PROTEIN 6.8 g/dL (6.4-8.2)
[2017-12-03 23:26] LABS: BASOPHILS # (AUTO) 0.02 x10^3/uL (0-0.1); BASOPHILS % (AUTO) 0 % (0-1); EOSINOPHILS % (AUTO) 0 % (1-7); LYMPHOCYTES # (AUTO) 0.95 x10^3/uL (1-3.4); LYMPHOCYTES % (AUTO) 4 % (22-44); MD SCAN; MONOCYTES # (AUTO) 0.33 x10^3/uL (0.2-0.8); MONOCYTES % (AUTO) 2 % (2-9); NEUTROPHILS # (AUTO) 20.45 x10^3/uL (1.8-6.8); NEUTROPHILS % (AUTO) 94 % (42-75)
[2017-12-03] MEDS ORDERED: SODIUM CHLORIDE 0.9% 1,000 ML IV SCH (23:30)
[2017-12-03] MEDS ORDERED: INSULIN REGULAR 100 UNITS/ML, 3ML VIAL IVPush ONE (23:30)
[2017-12-03 23:35] LABS: ACETONE, SERUM Trace (10mg/dL) mg/dL (Negative)
[2017-12-03] MEDS ORDERED: INSULIN REGULAR 100 UNITS/ML, 3ML VIAL ONE (23:46)
[2017-12-04] MEDS ORDERED: ONDANSETRON 2MG/ML, 2ML IVPush PRN (00:30)
[2017-12-04] MEDS ORDERED: CEFTRIAXONE PMX 1GM/50ML 50 ML IV SCH (00:30)
[2017-12-04] MEDS ORDERED: TEMAZEPAM 15 MG CAPSULE PO PRN (00:30)
[2017-12-04] MEDS ORDERED: ENOXAPARIN 40 MG/0.4 ML SQ SCH (00:30)
[2017-12-04] MEDS ORDERED: NS + 20MEQ KCL 1,000 ML IV ONE (01:19)
[2017-12-04] MEDS ORDERED: ENOXAPARIN 40 MG/0.4 ML ONE (01:19)
[2017-12-04] MEDS: NS + 20MEQ KCL 1,000 ML IV SCH ×3 (01:30→18:31)
[2017-12-04 02:30] LABS: ESTIMATED AVERAGE GLUCOSE 413 mg/dL (0-126)
[2017-12-04] MEDS: ENOXAPARIN 30 MG/0.3 ML SQ SCH (02:30)
[2017-12-04 02:31] LABS: HEMOGLOBIN A1C > 16.0 % (4.2-6.3)
[2017-12-04] MEDS: INSULIN ASPART 100 UNITS/ML, PEN SQ-INSULIN SCH ×5 (03:34→20:18)
[2017-12-04 03:47] LABS: ALBUMIN 2.3 g/dL (3.4-5.0); ANION GAP 13 mmol/L (5-15); CALCIUM 8.5 mg/dL (8.5-10.1); CHLORIDE 92 mmol/L (98-107); CREATININE 2.03 mg/dL (0.55-1.02)
[2017-12-04 04:28] VITALS: BP 164/71
[2017-12-04] MEDS: AZITHROMYCIN 500 MG in SODIUM CHLORIDE 0.9% 250 ML IV SCH (04:43)
[2017-12-04] MEDS: ASPIRIN 81 MG TABLET EC PO SCH (04:45)
[2017-12-04 06:01] VITALS: BP 119/69
[2017-12-04] MEDS ORDERED: INSULIN DETEMIR 100 UNITS/ML, PEN SQ-INSULIN SCH (06:30)
[2017-12-04] MEDS ORDERED: INSULIN ASPART 100 UNITS/ML, PEN SQ-INSULIN SCH (07:00)
[2017-12-04] MEDS: ATENOLOL 50 MG TABLET PO SCH ×2 (09:01→20:18)
[2017-12-04] MEDS: CLOPIDOGREL 75 MG TABLET PO SCH (09:01)
[2017-12-04] MEDS: BENAZEPRIL 20 MG TABLET PO SCH ×2 (09:02→20:18)
[2017-12-04] MEDS: AMLODIPINE 5 MG TABLET PO SCH (09:02)
[2017-12-04 12:57] VITALS: BP 142/72
[2017-12-04 18:51] VITALS: BP 192/92
[2017-12-04 19:29] LABS: MICROSCOPIC INDICATED
[2017-12-04] MEDS ORDERED: GLUCAGON 1 MG IM PRN (20:00)
[2017-12-04] MEDS ORDERED: DEXTROSE 50%, 50ML SYRINGE IVPush PRN (20:00)
[2017-12-04] MEDS ORDERED: DEXTROSE 4 GM TAB.CHEW PO PRN (20:00)
[2017-12-04 20:07] LABS: CULTURE INDICATED? YES
[2017-12-04] MEDS: hydrALAzine 20 MG/ML, 1ML IV PRN (20:22)
[2017-12-04] MEDS: SODIUM CHLORIDE FLUSH 10ML SYR IVF SCH (20:22)
[2017-12-04 22:40] VITALS: BP 146/55
[2017-12-05] MEDS: CEFTRIAXONE 1,000 MG in DEXTROSE 5% 50 ML IV SCH (00:39)
[2017-12-05] MEDS: NS + 20MEQ KCL 1,000 ML IV SCH ×3 (00:39→23:01)
[2017-12-05] MEDS: ENOXAPARIN 30 MG/0.3 ML SQ SCH (00:39)
[2017-12-05 04:23] VITALS: BP 159/88
[2017-12-05] MEDS: AZITHROMYCIN 500 MG in SODIUM CHLORIDE 0.9% 250 ML IV SCH (04:26)
[2017-12-05 05:11] LABS: ANION GAP 8 mmol/L (5-15); CALCIUM 7.6 mg/dL (8.5-10.1); CHLORIDE 105 mmol/L (98-107)
[2017-12-05 05:12] LABS: CREATININE 1.36 mg/dL (0.55-1.02)
[2017-12-05 05:24] LABS: MEAN CORPUSCULAR HEMOGLOBIN 30.2 pg (27.0-34.8); MEAN CORPUSCULAR HGB CONC 33.8 g/dL (32.4-35.8); MEAN CORPUSCULAR VOLUME 89.4 fL (80-100); MEAN PLATELET VOLUME 9.3 fL (7.4-10.4); PLATELET COUNT 209 x10^3/uL (130-400); RED CELL DISTRIBUTION WIDTH 12.7 % (9.6-15.2)
[2017-12-05] MEDS: ASPIRIN 81 MG TABLET EC PO SCH (05:58)
[2017-12-05 06:15] LABS: BASOPHILS # (AUTO) 0.08 x10^3/uL (0-0.1); BASOPHILS % (AUTO) 1 % (0-1); EOSINOPHILS # (AUTO) 0.01 x10^3/uL (0-0.4); EOSINOPHILS % (AUTO) 0 % (1-7); LYMPHOCYTES # (AUTO) 1.33 x10^3/uL (1-3.4); LYMPHOCYTES % (AUTO) 7 % (22-44); MD SCAN; MONOCYTES # (AUTO) 0.38 x10^3/uL (0.2-0.8); MONOCYTES % (AUTO) 2 % (2-9); NEUTROPHILS # (AUTO) 16.17 x10^3/uL (1.8-6.8); NEUTROPHILS % (AUTO) 90 % (42-75)
[2017-12-05] MEDS: INSULIN ASPART 100 UNITS/ML, PEN SQ-INSULIN SCH ×4 (07:00→21:05)
[2017-12-05 08:15] VITALS: BP 185/74
[2017-12-05] MEDS: CLOPIDOGREL 75 MG TABLET PO SCH (09:00)
[2017-12-05] MEDS: ATENOLOL 50 MG TABLET PO SCH ×2 (09:00→20:57)
[2017-12-05] MEDS: AMLODIPINE 5 MG TABLET PO SCH (09:00)
[2017-12-05] MEDS: BENAZEPRIL 20 MG TABLET PO SCH ×2 (09:00→20:57)
[2017-12-05] MEDS: SODIUM CHLORIDE FLUSH 10ML SYR IVF SCH ×2 (09:00→20:58)
[2017-12-05] MEDS: hydrALAzine 20 MG/ML, 1ML IV PRN (09:13)
[2017-12-05 09:30] VITALS: BP 147/62
[2017-12-05] MEDS ORDERED: VANCOMYCIN PMX 1GM/200ML 200 ML IV ONE (10:00)
[2017-12-05] MEDS ORDERED: VANCOMYCIN PER PHARMACY MC PRN (10:00)
[2017-12-05 10:30] VITALS: BP 147/62
[2017-12-05] MEDS ORDERED: PHARMACOKINETIC MONITORING MC PRN (10:30)
[2017-12-05] MEDS ORDERED: PHARMACOKINETIC CONSULTATION MC ONE (10:30)
[2017-12-05] MEDS: VANCOMYCIN 1,200 MG in SODIUM CHLORIDE 0.9% 250 ML IV SCH (11:43)
[2017-12-05 13:25] VITALS: BP 159/81
[2017-12-05] MEDS ORDERED: MAGNESIUM SULFATE PMX 2GM/50ML 50 ML IV ONE (16:30)
[2017-12-05 20:53] VITALS: BP 145/64
[2017-12-06] VITALS (7 sets, daily range): BP systolic 146–184; BP diastolic 68–75
[2017-12-06] MEDS: CEFTRIAXONE 1,000 MG in DEXTROSE 5% 50 ML IV SCH (00:45)
[2017-12-06] MEDS: ENOXAPARIN 40 MG/0.4 ML SQ SCH (00:45)
[2017-12-06] MEDS: hydrALAzine 20 MG/ML, 1ML IV PRN (00:55)
[2017-12-06] MEDS: ACETAMINOPHEN 325 MG TABLET PO PRN (03:04)
[2017-12-06] MEDS: AZITHROMYCIN 500 MG in SODIUM CHLORIDE 0.9% 250 ML IV SCH (04:18)
[2017-12-06] MEDS: ASPIRIN 81 MG TABLET CHEW PO SCH (05:26)
[2017-12-06] MEDS: NS + 20MEQ KCL 1,000 ML IV SCH ×3 (06:16→20:33)
[2017-12-06] MEDS: INSULIN ASPART 100 UNITS/ML, PEN SQ-INSULIN SCH ×4 (09:47→20:33)
[2017-12-06] MEDS: AMLODIPINE 5 MG TABLET PO SCH (09:47)
[2017-12-06] MEDS: ATENOLOL 50 MG TABLET PO SCH ×2 (09:47→20:20)
[2017-12-06] MEDS: CLOPIDOGREL 75 MG TABLET PO SCH (09:47)
[2017-12-06] MEDS: SODIUM CHLORIDE FLUSH 10ML SYR IVF SCH ×2 (09:48→20:20)
[2017-12-06] MEDS: BENAZEPRIL 20 MG TABLET PO SCH ×2 (09:48→20:20)
[2017-12-06 10:41] LABS: ANION GAP 11 mmol/L (5-15); CALCIUM 8.3 mg/dL (8.5-10.1); CHLORIDE 110 mmol/L (98-107); CREATININE 1.13 mg/dL (0.55-1.02)
[2017-12-06 10:53] LABS: BASOPHILS % (AUTO) 0 % (0-1); EOSINOPHILS # (AUTO) 0.02 x10^3/uL (0-0.4); EOSINOPHILS % (AUTO) 0 % (1-7); LYMPHOCYTES # (AUTO) 0.95 x10^3/uL (1-3.4); LYMPHOCYTES % (AUTO) 6 % (22-44); MD SCAN; MEAN CORPUSCULAR HEMOGLOBIN 29.9 pg (27.0-34.8); MEAN CORPUSCULAR HGB CONC 33.1 g/dL (32.4-35.8); MEAN CORPUSCULAR VOLUME 90.3 fL (80-100); MEAN PLATELET VOLUME 8.6 fL (7.4-10.4); MONOCYTES % (AUTO) 2 % (2-9); NEUTROPHILS # (AUTO) 14.45 x10^3/uL (1.8-6.8); NEUTROPHILS % (AUTO) 92 % (42-75); PLATELET COUNT 240 x10^3/uL (130-400); RED BLOOD COUNT 3.91 x10^6/uL (3.82-5.3)
[2017-12-06] MEDS: VANCOMYCIN 1,200 MG in SODIUM CHLORIDE 0.9% 250 ML IV SCH (22:44)
[2017-12-07] MEDS: ENOXAPARIN 40 MG/0.4 ML SQ SCH (00:23)
[2017-12-07] MEDS: CEFTRIAXONE 1,000 MG in DEXTROSE 5% 50 ML IV SCH (00:23)
[2017-12-07 03:06] VITALS: BP 140/68
[2017-12-07] MEDS: AZITHROMYCIN 500 MG in SODIUM CHLORIDE 0.9% 250 ML IV SCH (04:45)
[2017-12-07] MEDS: ASPIRIN 81 MG TABLET CHEW PO SCH (05:58)
[2017-12-07 07:36] LABS: ALANINE AMINOTRANSFERASE 10 U/L (12-78); ALBUMIN 1.8 g/dL (3.4-5.0); ANION GAP 13 mmol/L (5-15); BASOPHILS # (AUTO) 0.04 x10^3/uL (0-0.1); BASOPHILS % (AUTO) 0 % (0-1); CALCIUM 7.6 mg/dL (8.5-10.1); CHLORIDE 115 mmol/L (98-107); CREATININE 0.96 mg/dL (0.55-1.02); EOSINOPHILS # (AUTO) 0.02 x10^3/uL (0-0.4); EOSINOPHILS % (AUTO) 0 % (1-7); LYMPHOCYTES # (AUTO) 0.86 x10^3/uL (1-3.4); LYMPHOCYTES % (AUTO) 7 % (22-44); MD SCAN; MEAN CORPUSCULAR HGB CONC 33.2 g/dL (32.4-35.8); MEAN CORPUSCULAR VOLUME 90.3 fL (80-100); MEAN PLATELET VOLUME 8.8 fL (7.4-10.4); MONOCYTES # (AUTO) 0.32 x10^3/uL (0.2-0.8); MONOCYTES % (AUTO) 3 % (2-9); NEUTROPHILS # (AUTO) 11.78 x10^3/uL (1.8-6.8); NEUTROPHILS % (AUTO) 90 % (42-75); PLATELET COUNT 222 x10^3/uL (130-400); RED BLOOD COUNT 3.29 x10^6/uL (3.82-5.3); RED CELL DISTRIBUTION WIDTH 13.1 % (9.6-15.2)
[2017-12-07 07:37] LABS: ALKALINE PHOSPHATASE 166 U/L (45-117); BILIRUBIN,TOTAL 0.4 mg/dL (0.2-1.0); TOTAL PROTEIN 5.8 g/dL (6.4-8.2)
[2017-12-07 08:00] VITALS: BP 156/66
[2017-12-07] MEDS: NS + 20MEQ KCL 1,000 ML IV SCH ×3 (09:06→20:50)
[2017-12-07] MEDS: INSULIN ASPART 100 UNITS/ML, PEN SQ-INSULIN SCH ×4 (09:06→22:27)
[2017-12-07] MEDS: CLOPIDOGREL 75 MG TABLET PO SCH (09:06)
[2017-12-07] MEDS: SODIUM CHLORIDE FLUSH 10ML SYR IVF SCH ×2 (09:06→21:00)
[2017-12-07] MEDS: BENAZEPRIL 20 MG TABLET PO SCH ×2 (09:06→22:17)
[2017-12-07] MEDS: ATENOLOL 50 MG TABLET PO SCH ×2 (09:07→22:17)
[2017-12-07] MEDS: AMLODIPINE 5 MG TABLET PO SCH (09:07)
[2017-12-07] MEDS ORDERED: BISACODYL 10 MG SUPP PR PRN (12:30)
[2017-12-07] MEDS: BISACODYL 10 MG SUPP PR PRN (13:01)
[2017-12-07 13:10] VITALS: BP 154/74
[2017-12-07] MEDS ORDERED: FLUCONAZOLE 200 MG/100 ML 100 ML IV SCH (15:30)
[2017-12-07 19:30] VITALS: BP 172/70
[2017-12-07 22:16] VITALS: BP 152/77
[2017-12-07] MEDS ORDERED: LIDOCAINE-MPF 1%, 5ML IM ONE (23:00)
[2017-12-08] MEDS: ENOXAPARIN 40 MG/0.4 ML SQ SCH (00:08)
[2017-12-08] MEDS: CEFTRIAXONE 1,000 MG in DEXTROSE 5% 50 ML IV SCH (00:10)
[2017-12-08] MEDS ORDERED: CEFTRIAXONE 1,000 MG IM ONE (00:30)
[2017-12-08 02:51] VITALS: BP 170/68
[2017-12-08] MEDS: NS + 20MEQ KCL 1,000 ML IV SCH (03:30)
[2017-12-08] MEDS: AZITHROMYCIN 500 MG in SODIUM CHLORIDE 0.9% 250 ML IV SCH (04:00)
[2017-12-08] MEDS ORDERED: AZITHROMYCIN 250 MG TABLET PO ONE (04:00)
[2017-12-08] MEDS: ASPIRIN 81 MG TABLET CHEW PO SCH (05:36)
[2017-12-08 07:29] LABS: MEAN CORPUSCULAR HEMOGLOBIN 30.1 pg (27.0-34.8); MEAN CORPUSCULAR HGB CONC 33.2 g/dL (32.4-35.8); MEAN CORPUSCULAR VOLUME 90.4 fL (80-100); MEAN PLATELET VOLUME 8.6 fL (7.4-10.4); PLATELET COUNT 238 x10^3/uL (130-400); RED BLOOD COUNT 3.38 x10^6/uL (3.82-5.3); RED CELL DISTRIBUTION WIDTH 13.4 % (9.6-15.2)
[2017-12-08 07:32] VITALS: BP 183/78
[2017-12-08 07:38] LABS: ANION GAP 12 mmol/L (5-15); CALCIUM 8.5 mg/dL (8.5-10.1); CHLORIDE 116 mmol/L (98-107); CREATININE 0.99 mg/dL (0.55-1.02)
[2017-12-08 07:43] LABS: BASOPHILS # (AUTO) 0.02 x10^3/uL (0-0.1); BASOPHILS % (AUTO) 0 % (0-1); EOSINOPHILS # (AUTO) 0.02 x10^3/uL (0-0.4); EOSINOPHILS % (AUTO) 0 % (1-7); LYMPHOCYTES # (AUTO) 0.75 x10^3/uL (1-3.4); LYMPHOCYTES % (AUTO) 8 % (22-44); MD SCAN; MONOCYTES # (AUTO) 0.41 x10^3/uL (0.2-0.8); MONOCYTES % (AUTO) 4 % (2-9); NEUTROPHILS # (AUTO) 8.29 x10^3/uL (1.8-6.8); NEUTROPHILS % (AUTO) 87 % (42-75)
[2017-12-08] MEDS: AMLODIPINE 5 MG TABLET PO SCH (09:53)
[2017-12-08] MEDS: VANCOMYCIN 1,200 MG in SODIUM CHLORIDE 0.9% 250 ML IV SCH (09:53)
[2017-12-08] MEDS: BENAZEPRIL 20 MG TABLET PO SCH ×2 (09:53→20:57)
[2017-12-08] MEDS: INSULIN ASPART 100 UNITS/ML, PEN SQ-INSULIN SCH ×4 (09:53→21:19)
[2017-12-08] MEDS: ATENOLOL 50 MG TABLET PO SCH ×2 (09:53→20:58)
[2017-12-08] MEDS: CLOPIDOGREL 75 MG TABLET PO SCH (09:54)
[2017-12-08] MEDS: SODIUM CHLORIDE FLUSH 10ML SYR IVF SCH ×2 (09:54→20:57)
[2017-12-08 15:14] VITALS: BP 131/60
[2017-12-08 19:28] VITALS: BP 167/68
[2017-12-08 21:05] VITALS: BP 155/66
[2017-12-09] MEDS: CEFTRIAXONE 1,000 MG in DEXTROSE 5% 50 ML IV SCH (00:27)
[2017-12-09] MEDS: ENOXAPARIN 40 MG/0.4 ML SQ SCH (00:29)
[2017-12-09 02:39] VITALS: BP 151/67
[2017-12-09] MEDS: AZITHROMYCIN 500 MG in SODIUM CHLORIDE 0.9% 250 ML IV SCH (04:09)
[2017-12-09 04:42] LABS: BASOPHILS # (AUTO) 0.01 x10^3/uL (0-0.1); BASOPHILS % (AUTO) 0 % (0-1); EOSINOPHILS # (AUTO) 0.05 x10^3/uL (0-0.4); EOSINOPHILS % (AUTO) 1 % (1-7); LYMPHOCYTES # (AUTO) 0.76 x10^3/uL (1-3.4); LYMPHOCYTES % (AUTO) 9 % (22-44); MD NO; MEAN CORPUSCULAR HEMOGLOBIN 29.9 pg (27.0-34.8); MEAN CORPUSCULAR HGB CONC 32.9 g/dL (32.4-35.8); MEAN CORPUSCULAR VOLUME 90.8 fL (80-100); MEAN PLATELET VOLUME 8.6 fL (7.4-10.4); MONOCYTES # (AUTO) 0.42 x10^3/uL (0.2-0.8); MONOCYTES % (AUTO) 5 % (2-9); NEUTROPHILS # (AUTO) 6.82 x10^3/uL (1.8-6.8); NEUTROPHILS % (AUTO) 85 % (42-75); PLATELET COUNT 232 x10^3/uL (130-400); RED BLOOD COUNT 3.21 x10^6/uL (3.82-5.3); RED CELL DISTRIBUTION WIDTH 13.4 % (9.6-15.2)
[2017-12-09 04:48] LABS: ANION GAP 12 mmol/L (5-15); CALCIUM 8.2 mg/dL (8.5-10.1); CHLORIDE 113 mmol/L (98-107)
[2017-12-09 04:50] LABS: CREATININE 0.95 mg/dL (0.55-1.02)
[2017-12-09] MEDS: ASPIRIN 81 MG TABLET CHEW PO SCH (06:11)
[2017-12-09 07:55] VITALS: BP 161/70
[2017-12-09] MEDS: ATENOLOL 50 MG TABLET PO SCH ×2 (09:05→22:05)
[2017-12-09] MEDS: CLOPIDOGREL 75 MG TABLET PO SCH (09:05)
[2017-12-09] MEDS: BENAZEPRIL 20 MG TABLET PO SCH ×2 (09:06→22:05)
[2017-12-09] MEDS: SODIUM CHLORIDE FLUSH 10ML SYR IVF SCH ×2 (09:06→22:05)
[2017-12-09] MEDS: AMLODIPINE 5 MG TABLET PO SCH (09:06)
[2017-12-09] MEDS: INSULIN ASPART 100 UNITS/ML, PEN SQ-INSULIN SCH ×4 (09:07→22:05)
[2017-12-09 14:29] VITALS: BP 126/60
[2017-12-09 20:00] VITALS: BP 120/57
[2017-12-09 22:05] VITALS: BP 158/72
[2017-12-09 23:35] VITALS: BP 153/73
[2017-12-10] MEDS: VANCOMYCIN 1,200 MG in SODIUM CHLORIDE 0.9% 250 ML IV SCH (00:22)
[2017-12-10] MEDS: SODIUM CHLORIDE 0.9% 1,000 ML IV SCH ×3 (00:32→22:32)
[2017-12-10 02:00] VITALS: BP 160/76
[2017-12-10] MEDS: CEFTRIAXONE 1,000 MG in DEXTROSE 5% 50 ML IV SCH (02:16)
[2017-12-10] MEDS: ENOXAPARIN 40 MG/0.4 ML SQ SCH (02:24)
[2017-12-10] MEDS: AZITHROMYCIN 500 MG in SODIUM CHLORIDE 0.9% 250 ML IV SCH (03:50)
[2017-12-10] MEDS: ASPIRIN 81 MG TABLET CHEW PO SCH (06:00)
[2017-12-10 08:30] VITALS: BP 139/75
[2017-12-10] MEDS: INSULIN ASPART 100 UNITS/ML, PEN SQ-INSULIN SCH ×4 (08:32→22:31)
[2017-12-10] MEDS: CLOPIDOGREL 75 MG TABLET PO SCH (09:00)
[2017-12-10] MEDS: BENAZEPRIL 20 MG TABLET PO SCH ×2 (09:00→22:30)
[2017-12-10] MEDS: ATENOLOL 50 MG TABLET PO SCH ×2 (09:00→21:00)
[2017-12-10] MEDS: AMLODIPINE 5 MG TABLET PO SCH (09:00)
[2017-12-10] MEDS: SODIUM CHLORIDE FLUSH 10ML SYR IVF SCH ×2 (09:45→22:31)
[2017-12-10] MEDS ORDERED: FENTANYL PF 100 MCG/2ML ONE (10:08)
[2017-12-10] MEDS ORDERED: FLUMAZENIL 0.1 MG/1 ML, 5ML ONE (10:09)
[2017-12-10] MEDS ORDERED: PROTAMINE SULFATE 10 MG/ML, 25ML ONE (10:09)
[2017-12-10] MEDS ORDERED: HEPARIN 1,000 UNITS/ML, 10ML ONE (10:09)
[2017-12-10] MEDS ORDERED: MIDAZOLAM 1 MG/ML, 2ML ONE (10:09)
[2017-12-10] MEDS ORDERED: NITROGLYCERIN 5 MG/ML, 10ML ONE (10:09)
[2017-12-10] MEDS ORDERED: NALOXONE 1 MG/ML, 2ML ONE (10:09)
[2017-12-10] MEDS ORDERED: LIDOCAINE 2%, 20ML ONE (10:10)
[2017-12-10] MEDS ORDERED: VISIPAQUE 270 MG/ML, 150ML BOTTLE ONE (11:00)
[2017-12-10] MEDS ORDERED: hydrALAzine 20 MG/ML, 1ML ONE (11:03)
[2017-12-10 13:26] VITALS: BP 88/46
[2017-12-10] MEDS ORDERED: SODIUM CHLORIDE 0.9%, 500ML IVBOLUS ONE (13:30)
[2017-12-10] MEDS: ERTAPENEM 1 GM in SODIUM CHLORIDE 0.9% 50 ML IV SCH (16:00)
[2017-12-10 19:52] VITALS: BP 115/63
[2017-12-10 22:32] VITALS: BP 124/66
[2017-12-11] VITALS (11 sets, daily range): BP systolic 102–138; BP diastolic 52–70
[2017-12-11] MEDS: ENOXAPARIN 40 MG/0.4 ML SQ SCH (00:47)
[2017-12-11 03:25] LABS: MEAN CORPUSCULAR HEMOGLOBIN 29.8 pg (27.0-34.8); MEAN CORPUSCULAR HGB CONC 33.2 g/dL (32.4-35.8); MEAN CORPUSCULAR VOLUME 89.8 fL (80-100); MEAN PLATELET VOLUME 8.3 fL (7.4-10.4); PLATELET COUNT 221 x10^3/uL (130-400); RED CELL DISTRIBUTION WIDTH 13.4 % (9.6-15.2)
[2017-12-11 03:29] LABS: ANION GAP 8 mmol/L (5-15); CALCIUM 7.2 mg/dL (8.5-10.1); CHLORIDE 120 mmol/L (98-107); CREATININE 0.72 mg/dL (0.55-1.02)
[2017-12-11 03:53] LABS: BASOPHILS # (AUTO) 0.03 x10^3/uL (0-0.1); BASOPHILS % (AUTO) 0 % (0-1); EOSINOPHILS # (AUTO) 0.04 x10^3/uL (0-0.4); EOSINOPHILS % (AUTO) 1 % (1-7); LYMPHOCYTES # (AUTO) 0.86 x10^3/uL (1-3.4); LYMPHOCYTES % (AUTO) 13 % (22-44); MD SCAN; MONOCYTES # (AUTO) 0.34 x10^3/uL (0.2-0.8); MONOCYTES % (AUTO) 5 % (2-9); NEUTROPHILS # (AUTO) 5.46 x10^3/uL (1.8-6.8); NEUTROPHILS % (AUTO) 81 % (42-75)
[2017-12-11] MEDS: ASPIRIN 81 MG TABLET CHEW PO SCH (06:24)
[2017-12-11] MEDS: SODIUM CHLORIDE 0.9% 1,000 ML IV SCH ×3 (06:24→21:27)
[2017-12-11] MEDS: INSULIN ASPART 100 UNITS/ML, PEN SQ-INSULIN SCH ×4 (07:00→21:00)
[2017-12-11] MEDS ORDERED: DIPHENHYDRAMINE 12.5MG/5ML, 10ML UDC PO ONE (07:30)
[2017-12-11] MEDS ORDERED: ACETAMINOPHEN 325 MG TABLET PO ONE (07:30)
[2017-12-11] MEDS: ATENOLOL 50 MG TABLET PO SCH ×2 (09:00→21:00)
[2017-12-11] MEDS: CLOPIDOGREL 75 MG TABLET PO SCH (10:17)
[2017-12-11] MEDS: SODIUM CHLORIDE FLUSH 10ML SYR IVF SCH ×2 (10:17→21:25)
[2017-12-11] MEDS: AMLODIPINE 5 MG TABLET PO SCH (12:26)
[2017-12-11] MEDS: BENAZEPRIL 20 MG TABLET PO SCH ×2 (12:28→21:25)
[2017-12-11] MEDS: ERTAPENEM 1 GM in SODIUM CHLORIDE 0.9% 50 ML IV SCH (15:01)
[2017-12-11] MEDS: D5%-0.45NACL+KCL 20MEQ 1,000 ML IV SCH (15:42)
[2017-12-11] MEDS: FLUCONAZOLE 200 MG/100 ML 100 ML IV SCH (15:43)
[2017-12-11] MEDS: POTASSIUM CHLORIDE 20 MEQ TAB.ER.PRT PO SCH (16:54)
[2017-12-11] MEDS ORDERED: MAGNESIUM SULFATE PMX 4GM/100M 100 ML IV ONE (23:30)
[2017-12-12] MEDS: ENOXAPARIN 40 MG/0.4 ML SQ SCH (00:03)
[2017-12-12 02:30] VITALS: BP 125/67
[2017-12-12] MEDS: SODIUM CHLORIDE 0.9% 1,000 ML IV SCH ×3 (05:00→22:00)
[2017-12-12] MEDS: ASPIRIN 81 MG TABLET CHEW PO SCH (05:00)
[2017-12-12 05:30] LABS: BASOPHILS # (AUTO) 0.03 x10^3/uL (0-0.1); BASOPHILS % (AUTO) 0 % (0-1); EOSINOPHILS % (AUTO) 2 % (1-7); LYMPHOCYTES # (AUTO) 1.02 x10^3/uL (1-3.4); LYMPHOCYTES % (AUTO) 15 % (22-44); MD NO; MEAN CORPUSCULAR HEMOGLOBIN 29.8 pg (27.0-34.8); MEAN CORPUSCULAR HGB CONC 33.8 g/dL (32.4-35.8); MEAN CORPUSCULAR VOLUME 88.4 fL (80-100); MEAN PLATELET VOLUME 8.4 fL (7.4-10.4); MONOCYTES % (AUTO) 6 % (2-9); NEUTROPHILS # (AUTO) 5.16 x10^3/uL (1.8-6.8); NEUTROPHILS % (AUTO) 77 % (42-75); PLATELET COUNT 179 x10^3/uL (130-400); RED BLOOD COUNT 3.22 x10^6/uL (3.82-5.3)
[2017-12-12 05:31] LABS: ANION GAP 9 mmol/L (5-15); CALCIUM 7.2 mg/dL (8.5-10.1); CHLORIDE 117 mmol/L (98-107); CREATININE 0.74 mg/dL (0.55-1.02)
[2017-12-12] MEDS: INSULIN ASPART 100 UNITS/ML, PEN SQ-INSULIN SCH ×4 (07:00→22:25)
[2017-12-12 07:26] VITALS: BP 149/75
[2017-12-12] MEDS: ATENOLOL 50 MG TABLET PO SCH (09:00)
[2017-12-12] MEDS: CLOPIDOGREL 75 MG TABLET PO SCH (09:22)
[2017-12-12] MEDS: BENAZEPRIL 20 MG TABLET PO SCH ×2 (09:23→22:11)
[2017-12-12] MEDS: POTASSIUM CHLORIDE 20 MEQ TAB.ER.PRT PO SCH ×2 (09:23→18:02)
[2017-12-12] MEDS: AMLODIPINE 5 MG TABLET PO SCH (09:24)
[2017-12-12] MEDS: SODIUM CHLORIDE FLUSH 10ML SYR IVF SCH ×2 (09:24→22:17)
[2017-12-12] MEDS: D5%-0.45NACL+KCL 20MEQ 1,000 ML IV SCH (12:39)
[2017-12-12] MEDS: ERTAPENEM 1 GM in SODIUM CHLORIDE 0.9% 50 ML IV SCH (14:25)
[2017-12-12 14:30] VITALS: BP 127/66
[2017-12-12] MEDS: FLUCONAZOLE 200 MG/100 ML 100 ML IV SCH (16:36)
[2017-12-12 20:46] VITALS: BP 138/73
[2017-12-12] MEDS ORDERED: ATENOLOL 50 MG TABLET PO SCH (21:00)
[2017-12-13] MEDS: ENOXAPARIN 40 MG/0.4 ML SQ SCH (01:25)
[2017-12-13 02:04] VITALS: BP 121/63
[2017-12-13] MEDS: SODIUM CHLORIDE 0.9% 1,000 ML IV SCH ×3 (06:00→21:20)
[2017-12-13] MEDS: ASPIRIN 81 MG TABLET CHEW PO SCH (06:01)
[2017-12-13 06:30] LABS: ANION GAP 7 mmol/L (5-15); CALCIUM 7.3 mg/dL (8.5-10.1); CHLORIDE 117 mmol/L (98-107); CREATININE 0.76 mg/dL (0.55-1.02)
[2017-12-13 06:31] LABS: ALBUMIN 1.6 g/dL (3.4-5.0)
[2017-12-13] MEDS: INSULIN ASPART 100 UNITS/ML, PEN SQ-INSULIN SCH ×4 (07:00→20:43)
[2017-12-13 07:35] LABS: BASOPHILS # (AUTO) 0.04 x10^3/uL (0-0.1); BASOPHILS % (AUTO) 1 % (0-1); EOSINOPHILS # (AUTO) 0.07 x10^3/uL (0-0.4); EOSINOPHILS % (AUTO) 1 % (1-7); LYMPHOCYTES % (AUTO) 17 % (22-44); MD NO; MEAN CORPUSCULAR HEMOGLOBIN 29.6 pg (27.0-34.8); MEAN CORPUSCULAR HGB CONC 33.7 g/dL (32.4-35.8); MEAN CORPUSCULAR VOLUME 87.9 fL (80-100); MEAN PLATELET VOLUME 8.4 fL (7.4-10.4); MONOCYTES # (AUTO) 0.46 x10^3/uL (0.2-0.8); MONOCYTES % (AUTO) 7 % (2-9); NEUTROPHILS # (AUTO) 5.32 x10^3/uL (1.8-6.8); NEUTROPHILS % (AUTO) 75 % (42-75); PLATELET COUNT 199 x10^3/uL (130-400); RED BLOOD COUNT 3.22 x10^6/uL (3.82-5.3); RED CELL DISTRIBUTION WIDTH 14.5 % (9.6-15.2)
[2017-12-13 08:00] VITALS: BP 113/68
[2017-12-13] MEDS: CLOPIDOGREL 75 MG TABLET PO SCH (08:33)
[2017-12-13] MEDS: ACETAMINOPHEN 325 MG TABLET PO PRN ×2 (08:33→21:19)
[2017-12-13] MEDS: POTASSIUM CHLORIDE 20 MEQ TAB.ER.PRT PO SCH (08:33)
[2017-12-13] MEDS: SODIUM CHLORIDE FLUSH 10ML SYR IVF SCH ×2 (09:00→21:19)
[2017-12-13] MEDS: AMLODIPINE 5 MG TABLET PO SCH (11:15)
[2017-12-13 14:00] VITALS: BP 181/68
[2017-12-13 15:18] VITALS: BP 122/73
[2017-12-13] MEDS: ERTAPENEM 1 GM in SODIUM CHLORIDE 0.9% 50 ML IV SCH (15:51)
[2017-12-13] MEDS: FLUCONAZOLE 200 MG/100 ML 100 ML IV SCH (17:14)
[2017-12-13 20:04] VITALS: BP 163/67
[2017-12-13] MEDS: BENAZEPRIL 20 MG TABLET PO SCH (21:19)
[2017-12-14] MEDS: ENOXAPARIN 40 MG/0.4 ML SQ SCH (00:43)
[2017-12-14 01:57] VITALS: BP 177/77
[2017-12-14] MEDS: hydrALAzine 20 MG/ML, 1ML IV PRN (02:27)
[2017-12-14 02:44] VITALS: BP 149/66
[2017-12-14] MEDS: ASPIRIN 81 MG TABLET CHEW PO SCH (05:03)
[2017-12-14 05:47] LABS: BASOPHILS # (AUTO) 0.04 x10^3/uL (0-0.1); BASOPHILS % (AUTO) 1 % (0-1); EOSINOPHILS # (AUTO) 0.04 x10^3/uL (0-0.4); EOSINOPHILS % (AUTO) 1 % (1-7); LYMPHOCYTES # (AUTO) 1.13 x10^3/uL (1-3.4); LYMPHOCYTES % (AUTO) 14 % (22-44); MD NO; MEAN CORPUSCULAR HEMOGLOBIN 29.6 pg (27.0-34.8); MEAN CORPUSCULAR HGB CONC 33.5 g/dL (32.4-35.8); MEAN CORPUSCULAR VOLUME 88.4 fL (80-100); MEAN PLATELET VOLUME 8.3 fL (7.4-10.4); MONOCYTES # (AUTO) 0.43 x10^3/uL (0.2-0.8); MONOCYTES % (AUTO) 5 % (2-9); NEUTROPHILS # (AUTO) 6.29 x10^3/uL (1.8-6.8); NEUTROPHILS % (AUTO) 79 % (42-75); PLATELET COUNT 222 x10^3/uL (130-400); RED BLOOD COUNT 3.31 x10^6/uL (3.82-5.3); RED CELL DISTRIBUTION WIDTH 14.6 % (9.6-15.2)
[2017-12-14 05:51] LABS: ANION GAP 7 mmol/L (5-15); CALCIUM 7.6 mg/dL (8.5-10.1); CHLORIDE 113 mmol/L (98-107)
[2017-12-14] MEDS: SODIUM CHLORIDE 0.9% 1,000 ML IV SCH ×2 (06:00→14:00)
[2017-12-14] MEDS: INSULIN ASPART 100 UNITS/ML, PEN SQ-INSULIN SCH ×4 (07:00→21:00)
[2017-12-14 07:49] VITALS: BP 156/73
[2017-12-14] MEDS: SODIUM CHLORIDE FLUSH 10ML SYR IVF SCH ×2 (09:00→21:20)
[2017-12-14] MEDS: BENAZEPRIL 20 MG TABLET PO SCH ×2 (09:37→21:19)
[2017-12-14] MEDS: CLOPIDOGREL 75 MG TABLET PO SCH (09:37)
[2017-12-14] MEDS: AMLODIPINE 5 MG TABLET PO SCH (09:38)
[2017-12-14 14:51] VITALS: BP 136/62
[2017-12-14] MEDS: ERTAPENEM 1 GM in SODIUM CHLORIDE 0.9% 50 ML IV SCH (15:33)
[2017-12-14] MEDS: FLUCONAZOLE 200 MG/100 ML 100 ML IV SCH (18:16)
[2017-12-14 19:54] VITALS: BP 139/75
[2017-12-14] MEDS: ACETAMINOPHEN 325 MG TABLET PO PRN (20:33)
[2017-12-15] MEDS: ENOXAPARIN 40 MG/0.4 ML SQ SCH (00:30)
[2017-12-15 02:25] VITALS: BP 153/80
[2017-12-15] MEDS: SODIUM CHLORIDE 0.9% 1,000 ML IV SCH ×3 (04:00→20:00)
[2017-12-15] MEDS: ASPIRIN 81 MG TABLET CHEW PO SCH (05:56)
[2017-12-15] MEDS: INSULIN ASPART 100 UNITS/ML, PEN SQ-INSULIN SCH ×4 (07:00→20:18)
[2017-12-15 07:13] VITALS: BP 167/85
[2017-12-15] MEDS: BENAZEPRIL 20 MG TABLET PO SCH ×2 (09:00→20:21)
[2017-12-15] MEDS: CLOPIDOGREL 75 MG TABLET PO SCH (09:01)
[2017-12-15] MEDS: AMLODIPINE 5 MG TABLET PO SCH (09:01)
[2017-12-15] MEDS: SODIUM CHLORIDE FLUSH 10ML SYR IVF SCH ×2 (09:01→20:18)
[2017-12-15 12:55] VITALS: BP 130/72
[2017-12-15] MEDS: ERTAPENEM 1 GM in SODIUM CHLORIDE 0.9% 50 ML IV SCH (14:01)
[2017-12-15 19:09] VITALS: BP 152/74
[2017-12-15 20:20] VITALS: BP 134/58
[2017-12-16] MEDS: ENOXAPARIN 40 MG/0.4 ML SQ SCH (00:22)
[2017-12-16 02:33] VITALS: BP 138/74
[2017-12-16] MEDS: SODIUM CHLORIDE 0.9% 1,000 ML IV SCH ×3 (03:17→20:00)
[2017-12-16] MEDS: ASPIRIN 81 MG TABLET CHEW PO SCH (05:17)
[2017-12-16] MEDS: INSULIN ASPART 100 UNITS/ML, PEN SQ-INSULIN SCH ×4 (07:00→20:57)
[2017-12-16 07:10] VITALS: BP 147/81
[2017-12-16] MEDS: BENAZEPRIL 20 MG TABLET PO SCH ×2 (09:41→21:29)
[2017-12-16] MEDS: CLOPIDOGREL 75 MG TABLET PO SCH (09:41)
[2017-12-16] MEDS: SODIUM CHLORIDE FLUSH 10ML SYR IVF SCH ×2 (09:42→21:29)
[2017-12-16] MEDS: AMLODIPINE 5 MG TABLET PO SCH (09:47)
[2017-12-16 12:37] VITALS: BP 130/73
[2017-12-16] MEDS: ERTAPENEM 1 GM in SODIUM CHLORIDE 0.9% 50 ML IV SCH (15:58)
[2017-12-16 18:52] VITALS: BP 156/65
[2017-12-17] MEDS: ENOXAPARIN 40 MG/0.4 ML SQ SCH (00:14)
[2017-12-17] MEDS: ACETAMINOPHEN 325 MG TABLET PO PRN (01:19)
[2017-12-17 01:37] VITALS: BP 155/69
[2017-12-17] MEDS: SODIUM CHLORIDE 0.9% 1,000 ML IV SCH (04:00)
[2017-12-17] MEDS: ASPIRIN 81 MG TABLET CHEW PO SCH (05:27)
[2017-12-17 06:38] LABS: BASOPHILS # (AUTO) 0.02 x10^3/uL (0-0.1); BASOPHILS % (AUTO) 0 % (0-1); EOSINOPHILS % (AUTO) 0 % (1-7); LYMPHOCYTES # (AUTO) 0.98 x10^3/uL (1-3.4); LYMPHOCYTES % (AUTO) 17 % (22-44); MD NO; MEAN CORPUSCULAR HEMOGLOBIN 29.8 pg (27.0-34.8); MEAN CORPUSCULAR HGB CONC 33.4 g/dL (32.4-35.8); MEAN CORPUSCULAR VOLUME 89.1 fL (80-100); MEAN PLATELET VOLUME 7.6 fL (7.4-10.4); MONOCYTES # (AUTO) 0.42 x10^3/uL (0.2-0.8); MONOCYTES % (AUTO) 7 % (2-9); NEUTROPHILS # (AUTO) 4.23 x10^3/uL (1.8-6.8); NEUTROPHILS % (AUTO) 75 % (42-75); PLATELET COUNT 207 x10^3/uL (130-400); RED BLOOD COUNT 3.03 x10^6/uL (3.82-5.3); RED CELL DISTRIBUTION WIDTH 14.3 % (9.6-15.2)
[2017-12-17 06:45] VITALS: BP 158/68
[2017-12-17 06:47] LABS: ANION GAP 9 mmol/L (5-15); CALCIUM 7.7 mg/dL (8.5-10.1); CHLORIDE 106 mmol/L (98-107); CREATININE 0.71 mg/dL (0.55-1.02)
[2017-12-17] MEDS: INSULIN ASPART 100 UNITS/ML, PEN SQ-INSULIN SCH ×4 (07:00→19:57)
[2017-12-17] MEDS: AMLODIPINE 5 MG TABLET PO SCH (08:33)
[2017-12-17] MEDS: CLOPIDOGREL 75 MG TABLET PO SCH (08:33)
[2017-12-17] MEDS: SODIUM CHLORIDE FLUSH 10ML SYR IVF SCH ×2 (08:33→20:02)
[2017-12-17] MEDS: BENAZEPRIL 20 MG TABLET PO SCH ×2 (08:33→20:01)
[2017-12-17] MEDS ORDERED: ERTA1VIA IV (12:41)
[2017-12-17] MEDS: ERTAPENEM 1 GM in SODIUM CHLORIDE 0.9% 50 ML IV SCH (13:17)
[2017-12-17 13:49] VITALS: BP 145/71
[2017-12-17 19:13] VITALS: BP 139/70
[2017-12-17] MEDS: BISACODYL 10 MG SUPP PR PRN (20:00)
[2017-12-18] MEDS: ENOXAPARIN 40 MG/0.4 ML SQ SCH (00:28)
[2017-12-18 01:55] VITALS: BP 144/76
[2017-12-18] MEDS: ASPIRIN 81 MG TABLET CHEW PO SCH (05:13)
[2017-12-18] MEDS: INSULIN ASPART 100 UNITS/ML, PEN SQ-INSULIN SCH (07:00)
[2017-12-18 07:44] VITALS: BP 146/81
[2017-12-18] MEDS: CLOPIDOGREL 75 MG TABLET PO SCH (09:01)
[2017-12-18] MEDS: AMLODIPINE 5 MG TABLET PO SCH (09:01)
[2017-12-18] MEDS: BENAZEPRIL 20 MG TABLET PO SCH (09:01)
[2017-12-18] MEDS: SODIUM CHLORIDE FLUSH 10ML SYR IVF SCH (09:01)
[2017-12-18] MEDS: ACETAMINOPHEN 325 MG TABLET PO PRN (09:02)
[2017-12-18] MEDS: ERTAPENEM 1 GM in SODIUM CHLORIDE 0.9% 50 ML IV SCH (11:48)
== END 2017-12-18 13:32 | disposition home or self-care (01) | DRG 252 ==
LOC: ED 12-04 00:01 → EDIP 12-04 00:08 → 4EST 12-04 02:08
PROVIDERS: ADMIT Internal Medicine; ATTEND Family Medicine
PROC: 0T9B70Z Drainage of Bladder with Drainage Device, Via Natural or Artificial Opening (ICD-10-PCS; 2017-12-04)
PROC: B5181ZA Fluoroscopy of Superior Vena Cava using Low Osmolar Contrast, Guidance (ICD-10-PCS; 2017-12-08)
PROC: 02HV33Z Insertion of Infusion Device into Superior Vena Cava, Percutaneous Approach (ICD-10-PCS; 2017-12-08)
PROC: 047L341 Dilation of Left Femoral Artery with Drug-eluting Intraluminal Device, using Drug-Coated Balloon, Percutaneous Approach (ICD-10-PCS; principal; 2017-12-10)
PROC: 047U341 Dilation of Left Peroneal Artery with Drug-eluting Intraluminal Device, using Drug-Coated Balloon, Percutaneous Approach (ICD-10-PCS; 2017-12-10)
PROC: B41F1ZZ Fluoroscopy of Right Lower Extremity Arteries using Low Osmolar Contrast (ICD-10-PCS; 2017-12-10)
PROC: B41G1ZZ Fluoroscopy of Left Lower Extremity Arteries using Low Osmolar Contrast (ICD-10-PCS; 2017-12-10)
PROC: 047Y3DZ Dilation of Lower Artery with Intraluminal Device, Percutaneous Approach (ICD-10-PCS; 2017-12-10)
PROC: 30233N1 Transfusion of Nonautologous Red Blood Cells into Peripheral Vein, Percutaneous Approach (ICD-10-PCS; 2017-12-11)
DX: T82.818A Embolism due to vascular prosthetic devices, implants and grafts, initial encounter (principal); J69.0 Pneumonitis due to inhalation of food and vomit; N17.0 Acute kidney failure with tubular necrosis; E43 Unspecified severe protein-calorie malnutrition; J90 Pleural effusion, not elsewhere classified; E11.22 Type 2 diabetes mellitus with diabetic chronic kidney disease; I44.1 Atrioventricular block, second degree; E11.52 Type 2 diabetes mellitus with diabetic peripheral angiopathy with gangrene; N39.0 Urinary tract infection, site not specified; E87.1 Hypo-osmolality and hyponatremia; M86.9 Osteomyelitis, unspecified; T80.818A Extravasation of other vesicant agent, initial encounter; E11.621 Type 2 diabetes mellitus with foot ulcer; E11.65 Type 2 diabetes mellitus with hyperglycemia; E11.69 Type 2 diabetes mellitus with other specified complication; E87.6 Hypokalemia; F01.50 Vascular dementia, unspecified severity, without behavioral disturbance, psychotic disturbance, mood disturbance, and anxiety; I08.0 Rheumatic disorders of both mitral and aortic valves; I12.9 Hypertensive chronic kidney disease with stage 1 through stage 4 chronic kidney disease, or unspecified chronic kidney disease; I99.8 Other disorder of circulatory system; L97.519 Non-pressure chronic ulcer of other part of right foot with unspecified severity; L97.529 Non-pressure chronic ulcer of other part of left foot with unspecified severity; N18.9 Chronic kidney disease, unspecified; Z79.02 Long term (current) use of antithrombotics/antiplatelets; Z79.82 Long term (current) use of aspirin; Z79.84 Long term (current) use of oral hypoglycemic drugs; Z86.73 Personal history of transient ischemic attack (TIA), and cerebral infarction without residual deficits; Z87.891 Personal history of nicotine dependence; Z68.25 Body mass index [BMI] 25.0-25.9, adult
CPT/HCPCS: 36415; 36569; 37226; 71045; 75630; 76937; 77001; 80048; 80053; 80202; 81001; 82010; 82040; 82803; 82962; 83036; 83735; 83930; 84100; 85014; 85018; 85025; 86850; 86900; 86923; 87040; 87070; 87077; 87086; 87106; 87147; 87186; 87205; 93005; 93306; 93922; 93925; 96361; 96372; 96374; 99156; 99157; C1725; J0456; J0696; J1335; J1644; J1650; J1815; J2250; J2720; J3010; J3370; J3480; J3490; Q9966; C1751; C1760; C1769; C1874; C1894; C2623; J0360; J1450; J2310; J3475; J7030; J7040; J7050; P9016